=== PATIENT | female | born 1955 | race Caucasian/White ===

== ENCOUNTER → 2021-11-29 11:40 | Outpatient (REF) | payer OTHER, SELFPAY ==
--- NOTE | 2021-11-29 11:49 | CA_ITS ---
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 The visually estimated ejection fraction is between 60-65%. - No obvious valvular pathology seen on this study. - There is mild dilatation of the ascending aorta measuring 3.90 cm. Findings Left Ventricle Normal left ventricular cavity size. There is normal left ventricular wall thickness. The left ventricular systolic function is normal. The visually estimated ejection fraction is between 60-65%. There is no evidence of regional wall motion abnormalities. Diastolic function is normal for age. Right Ventricle Normal right ventricular cavity size and systolic function. Atria Both atria are normal in size. Aortic Valve There is a normal trileaflet aortic valve. There is no aortic valve stenosis. There is no aortic valve regurgitation. Mitral Valve The mitral valve appears normal. There is trace mitral valve regurgitation. There is no mitral valve stenosis. Pulmonic Valve The pulmonic valve was not well visualized. Tricuspid Valve Normal tricuspid valve structure. There is mild tricuspid valve regurgitation. The pulmonary artery systolic pressure is normal. Great Vessels There is mild dilatation of the ascending aorta measuring 3.90 cm. Venous The inferior vena cava is normal in size and collapses greater than 50% with inspiration. Pericardium/Pleural There is no evidence of pericardial effusion. Prior Study Comparison No prior study available for comparison. Recommendations, Care & Conclusions No obvious valvular pathology seen on this study. Measurements 2D Linear Measurements IVSd: 0.96 0.6-0.9/0.6-1.0 cm LVIDd: 4.31 3.9-5.3/4.2-5.9 cm LVIDd Index: 2.42 2.4-3.2/2.2-3.1 cm/m2 LVIDs: 2.80 2.0-3.6 cm LVPWd: 0.80 0.7-1.1 cm LA Diam: 2.90 2.7-3.8/3.0-4.0 cm LAIDs Index: 1.63 1.5-2.3 cm/m2 LV Mass: 149.33 67-162/88-224 g LV Mass Index: 83.89 43-95/49-115 g/m2 LVOT Diam: 2.00 3.0+(-)1.3 cm 2D Systolic Function EF 4C: 51.10 >55% Mitral Valve MV Pk E: 0.97 MV PK A: 0.77 MV Decel Time: 178.00 E/A: 1.30 E'Lateral: 8.38 E'Medial: 6.74 E/E' Med: 14.30 E/E' Lat: 11.50 PHT: 52.00 MVA PHT: 4.23 Decel [place]: 5.42 Aortic Valve AoV Pk Alessio: 1.23 AoV Pk Grad: 6.00 LVOT LVOT Pk Alessio: 1.21 LVOT Mn Alessio: 0.83 LVOT VTI: 0.26 LVOT Pk Grad: 6.00 LVOT Mn Grad: 3.00 LVOT Diam: 2.00 LVOT Area: 3.14 Diastolic Function MV Pk E: 0.97 MV Pk A: 0.77 E/A: 1.30 E'Medial: 6.74 E/E' Med: 14.30 E' Laterial: 8.38 E/E' Lat: 11.50 Right Ventricle TAPSE (mm): 26.40 TVS' Alessio: 10.30 Tricuspid Valve TR Pk Alessio: 2.44 TR Pk Grad: 24.00 RA Press: 3.00 Great Vessels Aorta Sinus of Valsalva: 2.87 2.0-3.[address] [place]: 2.97 1.7-3.4 cm Ao Asc: 3.90 2.1-3.4 cm Pulmonary Veins Pulm Vein S/D 1.40 Pulmonary Valve PV Pk Alessio: 0.81 Peak PV Grad: 3.00 Updated in Other Vendor System with Status of Final Gus Patel MD electronically signed on 11/29/2021 1:47:51 PM with status of Final
== END ==
LOC: HO.CARD 11:40
PROVIDERS: Visit Provider Family Medicine
DX: I34.1 Nonrheumatic mitral (valve) prolapse (principal)
CPT/HCPCS: 93306